=== PATIENT | male | born 1995 | race Caucasian/White ===

== ENCOUNTER 2022-08-14 18:59 | Emergency (ER) | payer SELFPAY ==
[2022-08-14 20:00] VITALS: BP 125/90
[2022-08-14] MEDS ORDERED: DOXYCYCLINE 100MG CAPSULE PO STA (21:24)
[2022-08-14] MEDS ORDERED: CefTRIAXone 1000mg IM Kit (w/lidocaine diluent) IM ONE (21:25)
[2022-08-14] MEDS ORDERED: meclizine 12.5mg tablet PO ONE (21:25)
[2022-08-14] MEDS ORDERED: mag hydrox/Alum hydrox/simeth 30ml oral suspension PO ONE (21:25)
[2022-08-14] MEDS ORDERED: pantoprazole 40mg Tablet.DR PO ONE (21:25)
[2022-08-14] MEDS ORDERED: DOXY100C76 PO (23:05)
== END 2022-08-14 23:17 | disposition home or self-care (01) ==
LOC: ER 19:00
DX: K21.9 Gastro-esophageal reflux disease without esophagitis (principal); Z11.3 Encounter for screening for infections with a predominantly sexual mode of transmission; R12 Heartburn; R07.89 Other chest pain; R06.02 Shortness of breath; Z87.891 Personal history of nicotine dependence
CPT/HCPCS: 36415; 87491; 87591; 93005; 96372; 99284; J0696; J8597

== ENCOUNTER 2022-09-16 13:37 | Emergency (ER) | payer SELFPAY ==
[~2022-09-16] VITALS: Ht 175.3 cm; Wt 68.2 kg
[2022-09-16 13:44] VITALS: BP 114/71
[2022-09-16 14:14] LABS: BASOPHILS % (AUTO) 0.1 % (0-1); EOSINOPHILS % (AUTO) 0.1 % (0-6); HEMATOCRIT 46.5 % (42.0-52.0); HEMOGLOBIN 15.6 g/dl (14.0-17.9); LYMPHOCYTES # (AUTO) 0.8 X10'3 (1.1-4.8); MEAN CORPUSCULAR HGB CONC 33.5 g/dL (33.0-36.5); MEAN CORPUSCULAR VOLUME 95.5 FL (78-98); MEAN PLATELET VOLUME 7.5 FL (7.4-10.4); MONOCYTES # (AUTO) 0.3 X10'3 (0-0.9); MONOCYTES % (AUTO) 2.1 % (2-12); NEUTROPHILS # (AUTO) 13.9 X10'3 (1.8-7.7); NEUTROPHILS % (AUTO) 92.7 % (42-75); PLATELET COUNT 247 X10'3 (140-440); RED BLOOD COUNT 4.88 X10'6 (4.70-6.10); RED CELL DISTRIBUTION WIDTH 13.3 % (11.5-14.5)
[2022-09-16 14:20] LABS: ALANINE AMINOTRANSFERASE 25 U/L (12-78); ALBUMIN 4.7 G/DL (3.4-5.0); ALBUMIN/GLOBULIN RATIO 1.6 (1.1-1.5); ALKALINE PHOSPHATASE 86 IU/L (46-116); ANION GAP 16 (8-16); ASPARTATE AMINO TRANSFERASE 39 U/L (10-37); BILIRUBIN,TOTAL 2.4 MG/DL (0.1-1.0); BLOOD UREA NITROGEN 17 MG/DL (7-18); BUN/CREATININE RATIO 19.1 (5.4-32.0); CALCIUM 8.9 MG/DL (8.5-10.1); CHLORIDE 97 MMOL/L (99-107); CREATININE 0.89 MG/DL (0.60-1.10); GLUCOSE 66 MG/DL (70-104); POTASSIUM 4.1 MMOL/L (3.5-5.1); SODIUM 135 MMOL/L (135-145); TOTAL CARBON DIOXIDE 21.9 MMOL/L (24-32); TOTAL PROTEIN 7.7 G/DL (6.4-8.2); eGFR > 90 ML/MIN
[2022-09-16 14:27] LABS: MAGNESIUM 1.8 MG/DL (1.5-2.4)
--- NOTE | 2022-09-16 16:00 | NUR ---
Patient refused to chest second troponin and state that he was leaving and going back to work per barn [employer].
== END 2022-09-16 20:06 | disposition left against medical advice (07) ==
LOC: ER 13:38
DX: R07.9 Chest pain, unspecified (principal); Z53.21 Procedure and treatment not carried out due to patient leaving prior to being seen by health care provider
CPT/HCPCS: 36415; 71045; 80053; 83735; 83880; 84484; 85025; 93005